=== PATIENT | male | born 1965 | race American Indian/Alaskan Native ===

== ENCOUNTER 2019-07-03 17:46 | Emergency (ER) | payer OTHER ==
[2019-07-03 18:29] VITALS: BP 121/67
--- NOTE | 2019-07-03 18:34 | Event Note ---
ED Screening Note Date of service: 07/03/19 Time: 18:28 ED Screening Note: This is a 53 y.o. M. that presents to the ER with right knee pain and swelling since yesterday. Patient states he was grilling when symptoms started. He went to [facility] yesterday and diagnosed with gout. Patient states he is taking colchicine and prednisone with no improvement of symptoms. Reports applying CBD oil as well with worsening symptoms. This initial assessment/diagnostic orders/clinical plan/treatment(s) is/are subject to change based on patients health status, clinical progression and re- assessment by fellow clinical providers in the ED. Further treatment and workup at subsequent clinical providers discretion. Patient/guardian urged not to elope from the ED as their condition may be serious if not clinically assessed and managed. Initial orders include: XR right knee
--- NOTE | 2019-07-03 19:14 | XRay Report ---
RIGHT KNEE 3 VIEWS INDICATION / CLINICAL INFORMATION: Right knee pain and swelling. COMPARISON: None available. FINDINGS: BONES / JOINT(S): There is a prosthesis involving the medial tibiofemoral joint space. There are mild degenerative changes involving the patellofemoral and lateral tibiofemoral joints. There is a modera te suprapatellar joint effusion. I see no evidence of fracture, dislocation or destructive lesion. SOFT TISSUES: There are a few calcific or ossific densities overlying the distal thigh medially which appeared to be in the soft tissues and outside the joint space. ADDITIONAL FINDINGS: None. IMPRESSION: Moderate joint effusion. Mild degenerative changes without acute osseous abnormality. Signer Name: Clayton Calles MD Signed: 07/03/2019 7:10 PM Workstation Name: [id number]
[2019-07-03] MEDS ORDERED: traMADol 50 MG TAB PO ONE (20:45)
--- NOTE | 2019-07-03 20:48 | Emergency Department Report ---
ED Extremity Problem HPI - General Chief complaint: Extremity Problem,Nontraumatic Stated complaint: RIGHT KNEE PAIN/SWELLING Time Seen by Provider: 07/03/19 18:27 Source: patient Mode of arrival: Wheelchair Limitations: No Limitations - History of Present Illness Initial comments: Patient is a 53-year-old male who presents emergency room with complaints of right knee pain and edema that began yesterday around 12 PM. He denies any fall or injury. He states he just began to experience the discomfort while he was standing outside grilling. The patient states that he [facility] was diagnosed with gout. he states he has never had gout before. He states he was given a Decadron injection and Toradol injection. He states he was placed on cholchicine and prednisone but his symptoms were not improving. He reports that he has had a partial knee replacement on this right knee. He denies any numbness or weakness. He is ambulatory with discomfort. He has a past medical history of hypertension. He denies any allergies medications. - Related Data Home Medications Medication Instructions Recorded Confirmed Last Taken Enalapril/Hydrochlorothiazide 1 each PO DAILY 12/02/15 03/18/16 03/17/16 12:00 [Vaseretic 10-25 mg] Celecoxib [celeBREX] 200 mg PO BID 03/18/16 03/18/16 03/17/16 20:00 Previous Rx's Medication Instructions Recorded Last Taken Type Ibuprofen [Motrin 600 MG tab] 600 mg PO Q8H PRN #14 tablet 07/03/19 Unknown Rx traMADoL [Ultram 50 MG tab] 50 mg PO Q6HR PRN #12 tablet 07/03/19 Unknown Rx Allergies Allergy/AdvReac Type Severity Reaction Status Date / Time No Known Allergies Allergy Verified 12/02/15 14:42 ED Review of Systems ROS: Stated complaint: RIGHT KNEE PAIN/SWELLING Other details as noted in HPI Comment: All other systems reviewed and negative ED Past Medical Hx - Past Medical History Previous Medical History?: Yes Hx Hypertension: Yes (X 10 YRS- TAKES MEDS IRREGULAR) Hx Congestive Heart Failure: No Hx Diabetes: No Hx GERD: Yes (NO MEDS) Hx Arthritis: Yes Hx Asthma: No Hx COPD: No Hx HIV: No - Social History Smoking Status: Never Smoker Substance Use Type: Alcohol - Medications Home Medications: Home Medications Medication Instructions Recorded Confirmed Last Taken Type Enalapril/Hydrochlorothiazide 1 each PO DAILY 12/02/15 03/18/16 03/17/16 12:00 History [Vaseretic 10-25 mg] Celecoxib [celeBREX] 200 mg PO BID 03/18/16 03/18/16 03/17/16 20:00 History Ibuprofen [Motrin 600 MG tab] 600 mg PO Q8H PRN #14 tablet 07/03/19 Unknown Rx traMADoL [Ultram 50 MG tab] 50 mg PO Q6HR PRN #12 tablet 07/03/19 Unknown Rx ED Physical Exam - General Limitations: No Limitations General appearance: alert, in no apparent distress - Head Head exam: Present: atraumatic, normocephalic - Eye Eye exam: Present: normal appearance - ENT ENT exam: Present: mucous membranes moist - Extremities Exam Extremities exam: Present: other (TTP over the right lateral knee, edema present to the right knee, pt is able to flex at 90 degrees, he has slightly decreased ROM secondary to discomfort, no obvious deformity, no obvious joint laxity, well healed midline knee incision is intact, neurovascularly intact, no erythema, no increased warmth) - Neurological Exam Neurological exam: Present: alert, oriented X3 - Psychiatric Psychiatric exam: Present: normal affect, normal mood - Skin Skin exam: Present: warm, dry, intact ED Course Vital Signs 07/03/19 07/03/19 18:26 21:03 Temperature 98.4 F Pulse Rate 100 H 104 H Respiratory 18 17 Rate Blood Pressure 121/67 O2 Sat by Pulse 100 99 Oximetry ED Medical Decision Making - Radiology Data Radiology results: report reviewed RIGHT KNEE 3 VIEWS INDICATION / CLINICAL INFORMATION: Right knee pain and swelling. COMPARISON: None available. FINDINGS: BONES / JOINT(S): There is a prosthesis involving the medial tibiofemoral joint space. There are mild degenerative changes involving the patellofemoral and lateral tibiofemoral joints. There is a moderate suprapatellar joint effusion. I see no evidence of fracture, dislocation or destructive lesion. SOFT TISSUES: There are a few calcific or ossific densities overlying the distal thigh medially which appeared to be in the soft tissues and outside the joint space. ADDITIONAL FINDINGS: None. IMPRESSION: Moderate joint effusion. Mild degenerative changes without acute osseous abnormality. Signer Name: Clayton Calles MD Signed: 07/03/2019 7:10 PM Workstation Name: [id number] Transcribed By: RT Dictated By: Clayton Calles MD Electronically Authenticated By: Clayton Calles MD Signed Date/Time: 07/03/191909 DD/ 07 - Medical Decision Making Patient is a 53-year-old male who presents emergency room with complaints of right knee pain and edema that began yesterday around 12 PM. He denies any fall or injury. He states he just began to experience the discomfort while he was standing outside grilling. The patient states that he went to the [facility] yesterday was diagnosed with gout. he states he has never had gout before. He states he was given a Decadron injection and Toradol injection. He states he was placed on cholchicine and prednisone but his symptoms were not improving. He reports that he has had a partial knee replacement on this right knee. He denies any numbness or weakness. He is ambulatory with discomfort. He has a past medical history of hypertension. He denies any allergies medications. vitals with mild tachycardia otherwise normal. on exam: TTP over the right lateral knee, edema present to the right knee, pt is able to flex at 90 degrees, he has slightly decreased ROM secondary to discomfort, no obvious deformity, no obvious joint laxity, well healed midline knee incision is intact, neurovascularly intact, no erythema, no increased warmth. No clinical signs of gout or septic joint. XR right knee: Moderate joint effusion. Mild degenerative changes without acute osseous abnormality. Discussed x-ray findings the patient. Patient states that he does have an orthopedic doctor that he can follow up with. Patient's discomfort treated while in the emergency department as patient did not drive and his symptoms improved. Patient given prescription for ibuprofen and tramadol. advised pt Please take medication as prescribed. Do not drive or operate heavy machinery while taking pain medication. May use ice for 15 minutes at a time, rest, elevation of the leg. Do not wear Isauro wrap too tightly and do not wear at night. Follow-up with your orthopedic doctor in the next 2-3 days for further management. Return to the emergency room for any new or worsening symptoms. - Differential Diagnosis gout, arthritis, joint effusion, septic joint, strain, sprain Critical care attestation.: If time is entered above; I have spent that time in minutes in the direct care of this critically ill patient, excluding procedure time. ED Disposition Clinical Impression: Effusion of right knee Right knee pain Qualifiers: Chronicity: acute Qualified Code(s): M25.561 - Pain in right knee Disposition: TO HOME OR SELFCARE Is pt being admited?: No Does the pt Need Aspirin: No Condition: Stable Instructions: Knee Effusion (ED), Knee Pain (ED) Additional Instructions: Please take medication as prescribed. Do not drive or operate heavy machinery while taking pain medication. May use ice for 15 minutes at a time, rest, elevation of the leg. Do not wear Isauro wrap too tightly and do not wear at night. Follow-up with your orthopedic doctor in the next 2-3 days for further management. Return to the emergency room for any new or worsening symptoms. Prescriptions: Ibuprofen [Motrin 600 MG tab] 600 mg PO Q8H PRN #14 tablet PRN Reason: Pain, Moderate (4-6) traMADoL [Ultram 50 MG tab] 50 mg PO Q6HR PRN #12 tablet PRN Reason: Pain , Severe (7-10) Referrals: TEE GREEN MD [Staff Physician] - 2-3 Days Time of Disposition: 20:49 Print Language: IVORIAN
== END 2019-07-03 21:05 | disposition home or self-care (01) ==
LOC: ED 17:46
DX: M25.461 Effusion, right knee (principal); I10 Essential (primary) hypertension; K21.9 Gastro-esophageal reflux disease without esophagitis; M19.90 Unspecified osteoarthritis, unspecified site; Z79.1 Long term (current) use of non-steroidal anti-inflammatories (NSAID); Z79.899 Other long term (current) drug therapy
CPT/HCPCS: 99283

== ENCOUNTER 2019-07-04 17:20 | Inpatient (IN) | payer OTHER ==
[2019-07-04] MEDS ORDERED: traMADol 50 MG TAB PO PRN (18:06)
[2019-07-04] MEDS ORDERED: ONDANSETRON 4 MG/2 ML INJ IV PRN (18:07)
[2019-07-04] MEDS ORDERED: ACETAMINOPHEN 325 MG TAB PO PRN (18:07)
--- NOTE | 2019-07-04 18:07 | History and Physical Report ---
History of Present Illness Date of examination: 07/04/19 Date of admission: 07/04/19 Chief complaint: Rt Knee pain 1 week History of present illness: Rt knee swelling and rt leg swelling 1 week.Rt Knee aspiration done by Dr Harris which was sent for analysis.Revealed [id number] white cells. patient being admitted directly for management of septic arthritis.And possible knee surgery. Past History Past Medical History: arthritis, diabetes, hypertension Past Surgical History: Other (03/19/16 l knee arthroscopy) Social history: lives with family, full code Family history: hypertension Medications and Allergies Allergies Allergy/AdvReac Type Severity Reaction Status Date / Time No Known Allergies Allergy Verified 12/02/15 14:42 Home Medications Medication Instructions Recorded Confirmed Last Taken Type Enalapril/Hydrochlorothiazide 1 each PO DAILY 12/02/15 07/04/19 07/03/19 History [Vaseretic 10-25 mg] Celecoxib [celeBREX] 200 mg PO BID 03/18/16 07/04/19 07/04/19 History Ibuprofen [Motrin 600 MG tab] 600 mg PO Q8H PRN #14 tablet 07/03/19 07/04/19 07/03/19 Rx traMADoL [Ultram 50 MG tab] 50 mg PO Q6HR PRN #12 tablet 07/03/19 07/04/19 07/03/19 Rx Active Meds: Active Medications Celecoxib (Celebrex) 200 mg PO BID [facility] Ampicillin Sodium/Sulbactam Sodium (Unasyn/Ns 3 Gm/100 Ml) 3 gm in 100 mls @ 100 mls/hr IV Q6HR [facility]; Protocol Miscellaneous Medication (Enalapril/Hydrochlorothiazide [Vaseretic 10-25 Mg]) 1 each PO DAILY [facility] Sodium Chloride (Sodium Chloride Flush Syringe 10 Ml) 10 ml IV BID [facility] Sodium Chloride (Sodium Chloride Flush Syringe 10 Ml) 10 ml IV PRN PRN PRN Reason: LINE FLUSH Tramadol HCl (Ultram) 50 mg PO Q6HR PRN PRN Reason: Pain , Severe (7-10) Review of Systems All systems: negative Integumentary: redness (Rt Knee) Exam - Constitutional General appearance: Present: no acute distress, well-nourished - EENT Eyes: Present: PERRL ENT: hearing intact, clear oral mucosa - Neck Neck: Present: supple, normal ROM - Respiratory Respiratory effort: normal Respiratory: bilateral: CTA - Cardiovascular Heart rate: 78 Rhythm: regular Heart Sounds: Present: S1 & S2. Absent: rub, click - Extremities Extremities: no ischemia, pulses intact, pulses symmetrical, No edema Extremity abnormal: edema, erythema (RT KNEE-TENDER,Decreased ROM) Peripheral Pulses: within normal limits - Abdominal General gastrointestinal: Present: soft, non-tender, non-distended, normal bowel sounds Male genitourinary: Present: normal - Integumentary Integumentary: Present: clear, warm, dry - Musculoskeletal Musculoskeletal: gait normal, strength equal bilaterally - Psychiatric Psychiatric: appropriate mood/affect, intact judgment & insight - Neurologic Neurologic: CNII-XII intact, moves all extremities - Allied Health Allied health notes reviewed: nursing, case management Results - Labs CBC & Chem 7: 07/06/19 05:57 07/06/19 05:57 - Imaging and Cardiology Chest x-ray: report reviewed (NAF) Imaging and Cardiology: RLE Duplex scan Negative for DVT Assessment and Plan Advance Directives: Yes (Full code) Plan of care discussed with patient/family: Yes - Patient Problems (1) Septic arthritis Current Visit: Yes Status: Acute Qualifiers: Septic arthritis location: knee Laterality: right Plan to address problem: IV abx in the form of Unasyn and IV vancomyin for now (2) SIRS (systemic inflammatory response syndrome) Current Visit: Yes Status: Acute Plan to address problem: IV abx (3) History of arthroplasty of right knee Onset Date: 12/05/15 Current Visit: No Status: Chronic Plan to address problem: For surgery Removal of previous hardware (4) Effusion of right knee Current Visit: No Status: Acute Plan to address problem: Rt knee fluid ,000 wbc,s IV Unasyn and vancomycin initiated (5) T2DM (type 2 diabetes mellitus) Current Visit: Yes Status: Chronic Qualifiers: Diabetes mellitus halfway insulin use: unspecified halfway insulin use status Plan to address problem: COnt achs BG levels and and insulin coverage. (6) HTN (hypertension) Current Visit: Yes Status: Chronic Qualifiers: Hypertension type: essential hypertension Qualified Code(s): I10 - Essential (primary) hypertension Plan to address problem: Cont antihypertensives (7) DVT prophylaxis Current Visit: Yes Status: Acute Plan to address problem: On SCD.s and GI prophlaxod
[2019-07-04] MEDS ORDERED: ENALAPRIL PO SCH (18:15)
[2019-07-04] MEDS ORDERED: HYDROCHLOROTHIAZIDE PO SCH (18:15)
[2019-07-04] MEDS ORDERED: VANCOMYCIN PHARMACY TO DOSE IV SCH (19:00)
[2019-07-04] MEDS ORDERED: SODIUM CHLORIDE 0.9% 1000 ML 1,000 ML IV SCH (19:00)
[2019-07-04] MEDS: FAMOTIDINE 20 MG/2 ML INJ IV SCH (21:19)
[2019-07-04] MEDS: HYDROmorphone 1 MG/1 ML INJ IV PRN (21:19)
[2019-07-04] MEDS: CELECOXIB 200 MG CAP PO SCH (21:21)
[2019-07-04] MEDS: hydroCHLOROthiazide 25 MG TAB PO SCH (21:22)
[2019-07-04] MEDS: LISINOPRIL 10 MG TAB PO SCH ×2 (21:22→21:25)
[2019-07-04 21:27] LABS: Basophils # (Auto) 0.1 K/mm3 (0.0-0.1); Basophils % (Auto) 0.8 % (0.0-1.8); Hematocrit 39.9 % (35.5-45.6); Hemoglobin 13.7 gm/dl (11.8-15.2); Lymphocytes # (Auto) 1.2 K/mm3 (1.2-5.4); Lymphocytes % (Auto) 9.7 % (13.4-35.0); Mean Corpuscular HGB Conc 35 % (32-34); Mean Corpuscular Volume 94 fl (84-94); Monocytes # (Auto) 1.5 K/mm3 (0.0-0.8); Monocytes % (Auto) 12.2 % (0.0-7.3); Platelet Count 151 K/mm3 (140-440); Red Blood Count 4.26 M/mm3 (3.65-5.03); Red Cell Distribution Width 14.6 % (13.2-15.2)
[2019-07-04 21:42] LABS: Alanine Aminotransferase 28 units/L (7-56); Albumin 3.6 g/dL (3.9-5); BUN/Creatinine Ratio 16; Blood Urea Nitrogen 16 mg/dL (9-20); Hemolysis Index 62
[2019-07-04 21:48] LABS: Erythrocyte Sedimentation Rate 56 mm/Hr (0-20)
[2019-07-04] MEDS: AMPICILLIN/SULBACTA 3GM/100ML 3 GM/100 ML BAG IV SCH (23:25)
[2019-07-04] MEDS ORDERED: VANCOMYCIN 2,000 MG in SODIUM CHLORIDE 0.9% 500 ML 500 ML IV ONE (23:45)
[2019-07-05 00:26] LABS: Bilirubin,Urine NEG (Negative); Blood,Urine LG (Negative); Color,Urine Yellow (Yellow); Protein,Urine <15 mg/dL mg/dL (Negative); Urobilinogen,Urine < 2.0 mg/dL (<2.0)
--- NOTE | 2019-07-05 00:57 | Vascular Lab Report ---
DUPLEX DOPPLER LOWER EXTREMITY VEINS, RIGHT INDICATION: R/O BLOOD CLOT , PT. PLANNED FOR SURGERY IN A.M.. TECHNIQUE: Duplex doppler imaging was performed through the veins of the right lower extremity using venous comp ression and other maneuvers. COMPARISON: No relevant prior imaging study available. FINDINGS: Right Common femoral vein: Negative. Right Superficial femoral vein: Negative. Right Popliteal vein: Negative. Right Calf veins: Negative. Additional findings: None.. IMPRESSION: Negative for DVT. Signer Name: Dennis Smith MD Signed: 07/05/2019 12:52 AM Workstation Name: [id number]
[2019-07-05] MEDS: HYDROmorphone 1 MG/1 ML INJ IV PRN ×3 (01:34→22:58)
[2019-07-05 04:14] LABS: Total Cells Counted 100 /mm3
[2019-07-05] MEDS: AMPICILLIN/SULBACTA 3GM/100ML 3 GM/100 ML BAG IV SCH ×4 (05:18→22:48)
[2019-07-05] MEDS: FAMOTIDINE 20 MG/2 ML INJ IV SCH ×2 (09:06→22:50)
[2019-07-05] MEDS: LISINOPRIL 10 MG TAB PO SCH (10:00)
[2019-07-05] MEDS: hydroCHLOROthiazide 25 MG TAB PO SCH (10:00)
--- NOTE | 2019-07-05 10:42 | Anesthesia Consultation ---
Anesthesia Consult and Med Hx Date of service: 07/05/19 - Airway Anesthetic Teeth Evaluation: Good, Caps ROM Head & Neck: Adequate Mental/Hyoid Distance: Adequate Mallampati Class: Class II Intubation Access Assessment: Probably Good - Pre-Operative Health Status ASA Pre-Surgery Classification: ASA3, Emergency Proposed Anesthetic Plan: General - Pulmonary Hx Smoking: No Hx Asthma: No COPD: No Hx Pneumonia: No Hx Sleep Apnea: Yes (SUKHWINDER PRE SCREEN HIGH RISK) - Cardiovascular System Hx Hypertension: Yes (X 10 YRS- TAKES MEDS IRREGULAR) Hx Angina: Yes (DRUG RELATED- RESOLVED) - Gastrointestinal Hx Ulcer: Yes - Endocrine Hx End Stage Renal Disease: No - Other Systems Hx Alcohol Use: Yes (2 BEERS PER DAY) Hx Substance Use: Yes (HX DRUG ABUSE) Hx Cancer: No - Additional Comments Anesthesia Medical History Comments: Had TKA done in 2016
--- NOTE | 2019-07-05 10:42 | Anesthesia Day of Surgery ---
Anesthesia Day of Surgery - Day of Surgery Patient Examined: Yes Patient H&P Reviewed: Yes Patient is NPO: Yes
[2019-07-05] MEDS ORDERED: HYDROmorphone 1 MG/1 ML INJ IV PRN (10:43)
[2019-07-05] MEDS ORDERED: MAGNESIUM OXIDE 400 MG TAB PO NR (10:44)
[2019-07-05] MEDS ORDERED: MORPHINE 2 MG/1 ML INJ IV NR (10:44)
[2019-07-05] MEDS ORDERED: ACETAMINOPHEN 500 MG TAB PO NR (10:44)
[2019-07-05] MEDS ORDERED: VANCOMYCIN 1000 MG INJ ONE ×2 (10:55→11:06)
[2019-07-05] MEDS ORDERED: POLYMYXIN B SULFATE 500,000 UNIT VIAL IV ONE ×2 (10:55→14:00)
[2019-07-05] MEDS ORDERED: BACITRACIN 50,000 UNIT VIAL ONE ×2 (10:55→10:56)
[2019-07-05] MEDS ORDERED: OXYCHLOROSENE 2 GM POWDER IR ONE ×2 (10:56→14:15)
[2019-07-05] MEDS ORDERED: LIDOCAINE MPF (2%) 20 MG/1 ML VIAL 5 ML ONE (10:58)
[2019-07-05] MEDS ORDERED: TRANEXAMIC ACID 1,000 MG/10 ML ONE (10:58)
[2019-07-05] MEDS ORDERED: fentaNYL 100 MCG/2 ML INJ ONE ×2 (10:59→15:40)
[2019-07-05] MEDS ORDERED: SODIUM CHLORIDE 0.9% 400 ML ONE (10:59)
[2019-07-05] MEDS ORDERED: PROPOFOL 200 MG/20 ML VIAL IV ONE (10:59)
[2019-07-05] MEDS ORDERED: MIDAZOLAM 2 MG/2 ML INJ IV NR (11:00)
[2019-07-05] MEDS ORDERED: GABAPENTIN 300 MG CAP PO NR (11:00)
[2019-07-05] MEDS: CELECOXIB 200 MG CAP PO SCH ×2 (11:00→22:49)
[2019-07-05] MEDS: VANCOMYCIN 1,750 MG in SODIUM CHLORIDE 0.9% 500 ML 500 ML IV SCH (11:00)
[2019-07-05] MEDS: LACTATED RINGERS 1,000 ML IV SCH (11:00)
[2019-07-05] MEDS ORDERED: TOBRAMYCIN 40 MG/ML VIAL 2 ML ONE (11:06)
--- NOTE | 2019-07-05 11:56 | Progress Note ---
Subjective Date of service: 07/05/19 Interval history: saw patient this morning at 9 am and again just now.. patient has acute onset severe right knee pain and swelling and inability to move and bend the cora. History of Right partial knee replacement. Aspiration yesterday by NIESHA shows gross pus 160 cc was aspirated and his knee swelled up again grade 3 this am. he has no history of any recent infection in the body as per the patient. PE- stiff painful swollen right knee, warmth present. movement increase pain tense effusion again in knee, recurrent NVI grossly xRAYS AT OFFICE SHOW PARTIAL UNI MEDIAL KNEE. AP- Disscussed with patient and informed him about his clinical and lab findings,, joint fluid gm positive cocci and gross pus on fluid aspiration, treatment options explained, nonop vs operative option explained. Surgical option explained I AND D and explant given his gross infection explained. cement spacer explained as well. Risk of surgery in terms of bleeding,, infection, nerve injury, vascular injury, stiffness in knee, persistant infection explained. he opts for sx. aware of all risk and benfit and alternative. Objective Vital signs: Vital Signs - 12hr 07/05/19 07/05/19 07/05/19 01:34 04:07 07:43 Temperature 98.0 F 98.3 F Pulse Rate 82 90 Respiratory 18 20 18 Rate Blood Pressure 116/77 125/70 O2 Sat by Pulse 96 98 Oximetry 07/05/19 11:00 Temperature Pulse Rate Respiratory 16 Rate Blood Pressure O2 Sat by Pulse Oximetry - Labs CBC & BMP: 07/04/19 21:04 07/04/19 21:04 Labs: Abnormal lab results 07/04/19 07/04/19 07/04/19 Range/Units 21:04 21:04 21:04 WBC 12.5 H (4.5-11.0) K/mm3 MCHC 35 H (32-34) % Lymph % (Auto) 9.7 L (13.4-35.0) % [place] % (Auto) 12.2 H (0.0-7.3) % [place] # 1.5 H (0.0-0.8) K/mm3 Seg Neutrophils % 77.3 H (40.0-70.0) % Seg Neutrophils # 9.7 H (1.8-7.7) K/mm3 Sodium 135 L (137-145) mmol/L Chloride 96.5 L (98-107) mmol/L Glucose 143 H (75-100) mg/dL POC Glucose (70-105) C-Reactive Protein 22.70 H (0.00-1.30) mg/dL Albumin 3.6 L (3.9-5) g/dL 07/05/19 Range/Units 11:00 WBC (4.5-11.0) K/mm3 MCHC (32-34) % Lymph % (Auto) (13.4-35.0) % [place] % (Auto) (0.0-7.3) % [place] # (0.0-0.8) K/mm3 Seg Neutrophils % (40.0-70.0) % Seg Neutrophils # (1.8-7.7) K/mm3 Sodium (137-145) mmol/L Chloride (98-107) mmol/L Glucose (75-100) mg/dL POC Glucose 126 H (70-105) C-Reactive Protein (0.00-1.30) mg/dL Albumin (3.9-5) g/dL
--- NOTE | 2019-07-05 12:02 | Progress Note ---
Subjective Date of service: 07/05/19 Interval history: patient may have potential ear infection in past.. informed patient about leaving the implant in vs removing and putting cement spacer.. risk and benefits of both option discussed and explained. He elects to remove the metal as it can be a constant source of infection since he is gross pus in the knee.. If I/o pus is seen under the metal and gap between the metal and bone with infection tissue, explant will be performed Objective Vital signs: Vital Signs - 12hr 07/05/19 07/05/19 07/05/19 01:34 04:07 07:43 Temperature 98.0 F 98.3 F Pulse Rate 82 90 Respiratory 18 20 18 Rate Blood Pressure 116/77 125/70 O2 Sat by Pulse 96 98 Oximetry 07/05/19 11:00 Temperature Pulse Rate Respiratory 16 Rate Blood Pressure O2 Sat by Pulse Oximetry - Labs CBC & BMP: 07/04/19 21:04 07/04/19 21:04 Labs: Abnormal lab results 07/04/19 07/04/19 07/04/19 Range/Units 21:04 21:04 21:04 WBC 12.5 H (4.5-11.0) K/mm3 MCHC 35 H (32-34) % Lymph % (Auto) 9.7 L (13.4-35.0) % [place] % (Auto) 12.2 H (0.0-7.3) % [place] # 1.5 H (0.0-0.8) K/mm3 Seg Neutrophils % 77.3 H (40.0-70.0) % Seg Neutrophils # 9.7 H (1.8-7.7) K/mm3 Sodium 135 L (137-145) mmol/L Chloride 96.5 L (98-107) mmol/L Glucose 143 H (75-100) mg/dL POC Glucose (70-105) C-Reactive Protein 22.70 H (0.00-1.30) mg/dL Albumin 3.6 L (3.9-5) g/dL 07/05/19 Range/Units 11:00 WBC (4.5-11.0) K/mm3 MCHC (32-34) % Lymph % (Auto) (13.4-35.0) % [place] % (Auto) (0.0-7.3) % [place] # (0.0-0.8) K/mm3 Seg Neutrophils % (40.0-70.0) % Seg Neutrophils # (1.8-7.7) K/mm3 Sodium (137-145) mmol/L Chloride (98-107) mmol/L Glucose (75-100) mg/dL POC Glucose 126 H (70-105) C-Reactive Protein (0.00-1.30) mg/dL Albumin (3.9-5) g/dL
[2019-07-05] MEDS ORDERED: HYDROmorphone 1 MG/1 ML INJ ONE (12:18)
[2019-07-05] MEDS ORDERED: TRANEXAMIC ACID 1,000 MG/10 ML IV ONE (12:35)
[2019-07-05] MEDS ORDERED: BACITRACIN 50,000 UNIT VIAL IR ONE (14:00)
[2019-07-05] MEDS ORDERED: VANCOMYCIN 1,000 MG/20 ML IV ONE (14:22)
[2019-07-05] MEDS ORDERED: LACTATED RINGERS 1,000 ML ONE (14:54)
[2019-07-05] MEDS ORDERED: dexAMETHasone 20 MG/5 ML VIAL ONE (14:57)
[2019-07-05] MEDS ORDERED: ONDANSETRON 4 MG/2 ML INJ ONE (14:57)
--- NOTE | 2019-07-05 15:18 | Progress Note ---
Assessment and Plan - Patient Problems (1) Septic arthritis Current Visit: Yes Status: Acute Qualifiers: Septic arthritis location: knee Laterality: right Plan to address problem: IV abx in the form of Unasyn and IV vancomyin for now (2) Effusion of right knee Current Visit: No Status: Acute Plan to address problem: Rt knee fluid [id number] wbc,s IV Unasyn and vancomycin initiated (3) T2DM (type 2 diabetes mellitus) Current Visit: Yes Status: Chronic Qualifiers: Diabetes mellitus exterminator helper insulin use: unspecified senior care insulin use status Plan to address problem: COnt achs BG levels and and insulin coverage. (4) HTN (hypertension) Current Visit: Yes Status: Chronic Qualifiers: Hypertension type: essential hypertension Qualified Code(s): I10 - Essential (primary) hypertension Plan to address problem: Cont antihypertensives (5) DVT prophylaxis Current Visit: Yes Status: Acute Plan to address problem: On SCD.s and GI prophlaxod Subjective Date of service: 07/05/19 Principal diagnosis: Rt Knee pain Interval history: Rt knee swelling and rt leg swelling 1 week.Rt Knee aspiration done by Dr Harris which was sent for analysis.Revealed [id number] white cells. patient being admitted directly for management of septic arthritis.And possible knee surgery. Objective - Constitutional Vitals: Vital Signs - 12hr 07/05/19 07/05/19 07/05/19 04:07 07:43 10:40 Temperature 98.0 F 98.3 F 99.7 F H Pulse Rate 82 90 97 H Respiratory 20 18 18 Rate Blood Pressure 116/77 125/70 144/86 O2 Sat by Pulse 96 98 99 Oximetry 07/05/19 07/05/19 07/05/19 10:50 11:00 11:45 Temperature 99.7 F H Pulse Rate 97 H Respiratory 18 16 16 Rate Blood Pressure 144/86 O2 Sat by Pulse 99 Oximetry General appearance: Present: no acute distress, well-nourished - EENT Eyes: PERRL, EOM intact ENT: hearing intact, clear oral mucosa Ears: bilateral: normal - Neck Neck: supple, normal ROM - Respiratory Respiratory effort: normal Respiratory: bilateral: CTA - Breasts Breasts: normal - Cardiovascular Heart rate: 78 Rhythm: regular Heart Sounds: Present: S1 & S2. Absent: gallop, rub Extremities: pulses intact, No edema, normal color, Full ROM Extremity abnormal: erythema, tenderness, other (Rt knee tender) - Gastrointestinal General gastrointestinal: Present: soft, non-tender, non-distended, normal bowel sounds Rectal Exam: deferred - Genitourinary Male genitourinary: normal - Integumentary Integumentary: clear, warm, dry - Musculoskeletal Musculoskeletal: 1, strength equal bilaterally - Neurologic Neurologic: moves all extremities - Psychiatric Psychiatric: memory intact, appropriate mood/affect, intact judgment & insight - Allied health notes Allied health notes reviewed: nursing, case management - Labs CBC & Chem 7: 07/04/19 21:04 07/04/19 21:04 Labs: Abnormal lab results 07/04/19 07/04/19 07/04/19 Range/Units 21:04 21:04 21:04 WBC 12.5 H (4.5-11.0) K/mm3 MCHC 35 H (32-34) % Lymph % (Auto) 9.7 L (13.4-35.0) % [place] % (Auto) 12.2 H (0.0-7.3) % [place] # 1.5 H (0.0-0.8) K/mm3 Seg Neutrophils % 77.3 H (40.0-70.0) % Seg Neutrophils # 9.7 H (1.8-7.7) K/mm3 Sodium 135 L (137-145) mmol/L Chloride 96.5 L (98-107) mmol/L Glucose 143 H (75-100) mg/dL POC Glucose (70-105) C-Reactive Protein 22.70 H (0.00-1.30) mg/dL Albumin 3.6 L (3.9-5) g/dL 07/05/19 Range/Units 11:00 WBC (4.5-11.0) K/mm3 MCHC (32-34) % Lymph % (Auto) (13.4-35.0) % [place] % (Auto) (0.0-7.3) % [place] # (0.0-0.8) K/mm3 Seg Neutrophils % (40.0-70.0) % Seg Neutrophils # (1.8-7.7) K/mm3 Sodium (137-145) mmol/L Chloride (98-107) mmol/L Glucose (75-100) mg/dL POC Glucose 126 H (70-105) C-Reactive Protein (0.00-1.30) mg/dL Albumin (3.9-5) g/dL
--- NOTE | 2019-07-05 16:04 | Event Note ---
Date: 07/05/19 Received consultation. Patient is in the OR currently. Will see him tomorrow. Thanks
--- NOTE | 2019-07-05 16:48 | XRay Report ---
RIGHT KNEE 2 VIEWS INDICATION / CLINICAL INFORMATION: Postop. COMPARISON: 07/03/2019. FINDINGS: The prosthesis in the medial tibiofemoral joint space has been removed. There is new cement overlying the medial tibial plateau and adjacent joint space. There is postsurgical gas in the soft tissues. M etallic derek overlying the surgical site. There is no evidence of fracture or dislocation. No complication of surgery is seen. Signer Name: Clayton Calles MD Signed: 07/05/2019 4:43 PM Workstation Name: [id number]
[2019-07-05] MEDS: oxyCODONE /ACETAMINOPHEN 5-325MG TAB PO PRN (17:33)
[2019-07-05 17:38] LABS: Total Cells Counted 100 /mm3
--- NOTE | 2019-07-05 18:45 | Operative Report ---
PREOPERATIVE DIAGNOSES: Septic right knee joint with partial medial unicompartmental arthroplasty, medial unicompartmental knee with infected right knee joint. POSTOPERATIVE DIAGNOSES: Grossly infected right knee joint with contaminated hardware with synovitis, synovial proliferation, acute inflammation of the right knee joint synovial tissue. Surgeon- Dr schmid , co-surgeon- Dr. Leigh PROCEDURES PERFORMED: 1. Revision right knee surgery. 2. Removal of the partial knee components and insertion of antibiotic cement spacer. 3. Complete synovectomy of the right knee joint, irrigation and debridement and synovectomy of right knee joint. Tissue cultures, biopsy of the right knee tissue joint. BRIEF HISTORY: The patient had partial knee replacement by Dr. Leigh in the past 3 years ago. Three days ago, he started having increased pain, discomfort and swelling in the knee and aspiration revealed gross pus about [address] andrew SCHERER. he experiences incraese pain, stiff and swollen knee with increased warmth and aspiration revealed gross pus and Gram stain grew gram-positive cocci. Elevated ESR, CRP. The patient was given all the options. The patient elected for surgical intervention with irrigation and debridement with removal of prosthesis with cement spacer insertion.. Discussed this along with Dr. Leigh, discussed this with the patient. The patient elected for irrigation, debridement and explant of cement spacer. DETAILS OF THE OPERATIVE REPORT: The patient was taken to the operating room. After smooth general endotracheal anesthesia, all the bony prominences were carefully padded, placed supine on the operating table. Thigh tourniquet was placed. Right knee and right lower extremity was prepped and draped in sterile fashion. Leg elevated, tourniquet inflated to 300 mmHg. No Esmarch was used. A longitudinal incision made over anterior aspect of the knee exposing extensive mechanism. Arthrotomy performed. Patella was just shifted. Gross significant amount of pus was encountered and that was sent for cell count with diff, aerobic and anaerobic culture, AFB, fungal culture by the staff. Noticed, there was significant acute inflammation, synovitis and proliferation of the knee joint. Necessary subperiosteal dissection was continued around the proximal and medial tibia. Necessary soft tissue release was performed to correct the fixed angular deformity. Necessary soft tissue release was performed to basically put the Z retractor in place. The polyethylene liner was removed. Gross amount of pus was again delivered on the back of the knee and there was some infected tissue material seen underneath the implant as well. We decided to remove the implant given the significant amount of pus and grossly infected knee and the synovium was all infected looking as well with acute inflammation. Using a micro saw, flexible osteotome and a pencil tip bur, the implants of uni knee on medial side, the uni was removed without any bone loss. The remnant of the cement was removed as well. Complete synovectomy was then performed thoroughly. Once necessary tissue culture, synovial tissue cultures, culture swabs were done, tissue cultures were done, irrigation with 6 liters of saline was done with antibiotic-soaked normal saline followed by a Clorpactin irrigation at least a liter, then followed by normal saline irrigation a liter. Once thorough washing was performed, this was all done after synovectomy and washed, washing was performed, dirty clean technique was used. We used new drapes on the bottom underneath. New Bovie tip and new suction tip was used. gloves were changed. new Retractors and new set of instruments were used. Once this was done, we decided to use antibiotic spacer for the medial side. We mixed 2 bags of cement, mixed about 5 gram of vancomycin and 4 gram of tobramycin, a bag and a half of cement and prepared on the back table and made a spacer mold on the medial uni and inserted and put in the late doughy phase. Once this was done, tourniquet released. Hemostasis achieved. No active bleeder as such.ethibond sutures were removed. Arthrotomy closure was then performed with a #2 PDS type of suture. Subcutaneous tissue was closed with 0 and 2-0 PDS suture and skin was closed with derek. A dressing was done with Aquacel. Isauro wrap applied. Knee immobilizer applied. The patient tolerated procedure well, shifted to recovery room in stable condition. Sponge and needle count was correct. JOB# [id number] NICOLE/OSWALDO HERNANDEZ
[2019-07-05] MEDS: APIXABAN 2.5 MG TAB PO SCH (22:58)
[2019-07-06] MEDS: VANCOMYCIN 1,750 MG in SODIUM CHLORIDE 0.9% 500 ML 500 ML IV SCH ×2 (00:11→15:59)
[2019-07-06] MEDS: LACTATED RINGERS 1,000 ML IV SCH ×2 (01:12→16:02)
[2019-07-06] MEDS: AMPICILLIN/SULBACTA 3GM/100ML 3 GM/100 ML BAG IV SCH ×2 (03:05→09:17)
[2019-07-06] MEDS: HYDROmorphone 1 MG/1 ML INJ IV PRN ×4 (03:45→19:56)
[2019-07-06] MEDS: oxyCODONE /ACETAMINOPHEN 5-325MG TAB PO PRN ×2 (05:35→22:09)
[2019-07-06 06:23] LABS: Basophils # (Auto) 0.1 K/mm3 (0.0-0.1); Basophils % (Auto) 0.5 % (0.0-1.8); Hematocrit 35.9 % (35.5-45.6); Hemoglobin 12.1 gm/dl (11.8-15.2); Lymphocytes # (Auto) 0.5 K/mm3 (1.2-5.4); Mean Corpuscular HGB Conc 34 % (32-34); Mean Corpuscular Volume 95 fl (84-94); Monocytes % (Auto) 8.5 % (0.0-7.3); Platelet Count 173 K/mm3 (140-440); Red Blood Count 3.79 M/mm3 (3.65-5.03); Red Cell Distribution Width 14.5 % (13.2-15.2)
[2019-07-06 06:53] LABS: Alanine Aminotransferase 27 units/L (7-56); Albumin 3.3 g/dL (3.9-5); BUN/Creatinine Ratio 14; Blood Urea Nitrogen 13 mg/dL (9-20); Calcium 8.5 mg/dL (8.4-10.2); Hemolysis Index 0
[2019-07-06] MEDS: FAMOTIDINE 20 MG/2 ML INJ IV SCH ×2 (09:18→22:09)
[2019-07-06] MEDS: CELECOXIB 200 MG CAP PO SCH ×2 (09:18→22:08)
[2019-07-06] MEDS: hydroCHLOROthiazide 25 MG TAB PO SCH (09:18)
[2019-07-06] MEDS: APIXABAN 2.5 MG TAB PO SCH ×2 (09:18→22:23)
[2019-07-06] MEDS: LISINOPRIL 10 MG TAB PO SCH (09:19)
--- NOTE | 2019-07-06 10:21 | Consultation ---
History of Present Illness - Reason for Consult Consult date: 07/06/19 Infected knee joint Requesting physician: KATTY DAMIAN - History of Present Illness The patient is a 53-year-old male with arthritis, pre-diabetes, hypertension. He underwent a partial R knee replacement about 3 years ago. Over the last 1 week, he developed progressive pain, swelling in his knee joint. He underwent R knee aspiration by Dr. Harris which revealed 200,000 white cells. Hence, he was admitted for management of septic arthritis. On 07/05/2019, he underwent revision with removal of the partial knee components, insertion of antibiotic cement and complete synovectomy of the R knee joint with I&D. ID was consulted for antibiotic management. About a week ago, he reports having ear pain and he put in some ?peroxide ear drops. He denies any fevers or chills. As any recent history of pneumonia. Denies smoking. Drinks 1-2 cans of beer every day. Review of Systems: General: no fevers,chills or rigors HEENT: no new visual disturbance Respiratory: No cough, sputum, hemoptysis or shortness of breath Cardiovascular: No chest pain, syncope Gastrointestinal: No nausea, vomiting or diarrhea Genitourinary: No dysuria or hematuria Musculoskeletal: No new or worsening neck pain or back pain Neurologic: No headaches, seizures Hematologic: No easy bruising or bleeding Endocrine: No night sweats or acute weight loss Skin: negative for rash, jaundice Psychiatric: No suicidal or homicidal ideation Past History Past Medical History: arthritis, diabetes, hypertension Past Surgical History: Other (03/19/16 l knee arthroscopy) Social history: lives with family, full code Family history: hypertension Medications and Allergies Allergies Allergy/AdvReac Type Severity Reaction Status Date / Time No Known Allergies Allergy Verified 12/02/15 14:42 Home Medications Medication Instructions Recorded Confirmed Last Taken Type Enalapril/Hydrochlorothiazide 1 each PO DAILY 12/02/15 07/04/19 07/03/19 History [Vaseretic 10-25 mg] Celecoxib [celeBREX] 200 mg PO BID 03/18/16 07/04/19 07/04/19 History Ibuprofen [Motrin 600 MG tab] 600 mg PO Q8H PRN #14 tablet 07/03/19 07/04/19 07/03/19 Rx traMADoL [Ultram 50 MG tab] 50 mg PO Q6HR PRN #12 tablet 07/03/19 07/04/19 07/03/19 Rx Active Meds: Active Medications Acetaminophen (Tylenol) 650 mg PO Q4H PRN PRN Reason: Pain MILD(1-3)/Fever >100.5/DIAZ Apixaban (Eliquis) 2.5 mg PO Q12HR [facility]; Protocol Last Admin: 07/06/19 09:18 Dose: 2.5 mg Documented by: Celecoxib (Celebrex) 200 mg PO BID [facility] Last Admin: 07/06/19 09:18 Dose: 200 mg Documented by: Famotidine (Pepcid) 20 mg IV BID [facility] Last Admin: 07/06/19 09:18 Dose: 20 mg Documented by: Hydrochlorothiazide (Hctz) 25 mg PO QDAY [facility] Last Admin: 07/06/19 09:18 Dose: 25 mg Documented by: Hydromorphone HCl (Dilaudid) 1 mg IV Q3H PRN PRN Reason: Pain , Severe (7-10) Last Admin: 07/06/19 03:45 Dose: 1 mg Documented by: Ampicillin Sodium/Sulbactam Sodium (Unasyn/Ns 3 Gm/100 Ml) 3 gm in 100 mls @ 100 mls/hr IV Q6H [facility]; Protocol Last Admin: 07/06/19 09:17 Dose: 100 mls/hr Documented by: Sodium Chloride (Nacl 0.9% 1000 Ml) 1,000 mls @ 75 mls/hr IV DIRECT [facility] Last Admin: 07/04/19 21:21 Dose: 75 mls/hr Documented by: Vancomycin HCl 1,750 mg/ (Sodium Chloride) 535 mls @ 333.333 mls/hr IV Q12H [facility] Last Admin: 07/06/19 00:11 Dose: 333.333 mls/hr Documented by: Lactated Ringer's (Lactated Ringers) 1,000 mls @ 125 mls/hr IV DIRECT [facility] Last Admin: 07/06/19 01:12 Dose: 125 mls/hr Documented by: Lisinopril (Zestril) 10 mg PO QDAY [facility] Last Admin: 07/06/19 09:19 Dose: Not Given Documented by: Ondansetron HCl (Zofran) 4 mg IV Q8H PRN PRN Reason: Nausea And Vomiting Oxycodone/Acetaminophen (Percocet 5/325) 1 tab PO Q6H PRN PRN Reason: Pain, Moderate (4-6) Last Admin: 07/06/19 05:35 Dose: 1 tab Documented by: Sodium Chloride (Sodium Chloride Flush Syringe 10 Ml) 10 ml IV BID [facility] Last Admin: 07/06/19 09:20 Dose: 10 ml Documented by: Sodium Chloride (Sodium Chloride Flush Syringe 10 Ml) 10 ml IV BID [facility] Last Admin: 07/06/19 00:18 Dose: Not Given Documented by: Tramadol HCl (Ultram) 50 mg PO Q6HR PRN PRN Reason: Pain, Moderate (4-6) Physical Examination - Physical Exam Narrative exam: Physical Exam: Constitutional: Alert, cooperative. No acute distress Head, Ears, Nose: Normocephalic, atraumatic. External ears, nose normal Eyes: Conjunctivae/corneas clear. No icterus. No ptosis. Neck: Supple, no meningeal signs Oral: dentition fair, no thrush Cardiovascular: S1, S2 normal. Respiratory: b/l exp rhonchi + GI: Soft, non-tender; bowel sounds normal. No peritoneal signs Musculoskeletal: No pedal edema, no cyanosis. R knee surgical dressing + mild warmth and tenderness Skin: No rash or abscess Hem/Lymphatic: No palpable cervical or supraclavicular nodes. No lymphangitis Psych: Mood ok. Affect normal Neurological: Awake, alert, oriented. No gross abnormality - Constitutional Vitals: Vital Signs Temp Pulse Resp BP Pulse Ox 97.8 F 78 19 121/72 96 07/06/19 09:32 07/06/19 09:32 07/06/19 09:32 07/06/19 09:32 07/06/19 09:32 Temperature -Last 24 Hours Temperature 97.8 F Temperature 97.8 F Temperature 97.6 F Temperature 97.4 F Temperature 97.3 F Temperature 97.5 F Temperature 98.0 F Temperature 97.7 F Temperature 99.7 F Temperature 99.7 F Results - Labs CBC & Chem 7: 07/06/19 05:57 07/06/19 05:57 Labs: Abnormal lab results 07/05/19 07/06/19 07/06/19 Range/Units 11:00 05:57 05:57 WBC 11.9 H (4.5-11.0) K/mm3 MCV 95 H (84-94) fl Lymph % (Auto) 4.0 L (13.4-35.0) % [place] % (Auto) 8.5 H (0.0-7.3) % Lymph # 0.5 L (1.2-5.4) K/mm3 [place] # 1.0 H (0.0-0.8) K/mm3 Seg Neutrophils % 87.0 H (40.0-70.0) % Seg Neutrophils # 10.4 H (1.8-7.7) K/mm3 Glucose 195 H (75-100) mg/dL POC Glucose 126 H (70-105) Albumin 3.3 L (3.9-5) g/dL Imaging reviewed personally: Xray of knee shows removal of prosthesis. 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 Patient with gross purulence and hence is s/p revision with removal of the partial knee components, insertion of antibiotic cement and complete synovectomy of the R knee joint with I&D on 07/05/[address] Damian. Plan for 6 weeks of directed IV abx. Get baseline inflammatory ma rkers ESR and CRP. Also check CXR and TTE. 2) DM-2/pre-diabetes 3) HTN Recs: - IV Ceftriaxone 2 gm daily started - continue IV Vancomycin for now, till resistant Strep pneumoniae is ruled out - PICC line tomorrow (if blood cultures remain negative at 48 hrs) - Unasyn d/wayne - CXR and TTE, ESR, CRP ordered Will follow. Kristi Powell MD, FACP [facility] ([facility] C: [phone] O: [phone] F: [phone]
--- NOTE | 2019-07-06 11:15 | Progress Note ---
Subjective Date of service: 07/06/19 Principal diagnosis: Rt Knee pain Interval history: pod1, doing well. patient had some tingling in the sole which got better fully with removal of xin PE dressing dry No knee effusion today Calf soft NT NVI ankle movts present 5/5 ankle and EFL. DF 5/5 PF- 5/5/ Sensations in LE and foot WNL. Normal pressure and priprioception sensation. Dressing is dry No active drainage patient infored of the course of treatment, possibility of persistant infection in knee explained which may need multiple scxx. Steg 2 revision after treating infection explained. Risk of knee fusion, and Rare possibility of amputation discussed,. Family and patient aware.. Objective Vital signs: Vital Signs - 12hr 07/05/19 07/06/19 07/06/19 23:58 04:31 07:28 Temperature 97.3 F L 97.4 F L 97.6 F Pulse Rate 79 72 74 Respiratory 17 17 18 Rate Blood Pressure 121/73 127/70 121/56 Blood Pressure [Left] O2 Sat by Pulse 96 97 96 Oximetry 07/06/19 07/06/19 09:16 09:32 Temperature 97.8 F 97.8 F Pulse Rate 75 78 Respiratory 19 19 Rate Blood Pressure 121/72 Blood Pressure 121/72 [Left] O2 Sat by Pulse 97 96 Oximetry - Labs CBC & BMP: 07/06/19 05:57 07/06/19 05:57 Labs: Abnormal lab results 07/06/19 07/06/19 Range/Units 05:57 05:57 WBC 11.9 H (4.5-11.0) K/mm3 MCV 95 H (84-94) fl Lymph % (Auto) 4.0 L (13.4-35.0) % [place] % (Auto) 8.5 H (0.0-7.3) % Lymph # 0.5 L (1.2-5.4) K/mm3 [place] # 1.0 H (0.0-0.8) K/mm3 Seg Neutrophils % 87.0 H (40.0-70.0) % Seg Neutrophils # 10.4 H (1.8-7.7) K/mm3 Glucose 195 H (75-100) mg/dL Albumin 3.3 L (3.9-5) g/dL
--- NOTE | 2019-07-06 13:05 | Progress Note ---
Subjective Date of service: 07/06/19 Principal diagnosis: Rt Knee pain Interval history: ortho DC instructions once clear by medicine, PT an ID. TTWB right LE Knee immobilizer at all times, Isometric quads Ankle pumps Eliquis 2.5 mg BID for 12 days then ECASA 325 MG bid FOR 4 WEEKS. Ice pacs on knee. Pain meds PRN fOllow Medicine and ID instructions. Follow up2 WEEKS. Objective Vital signs: Vital Signs - 12hr 07/06/19 07/06/19 07/06/19 04:31 07:28 09:16 Temperature 97.4 F L 97.6 F 97.8 F Pulse Rate 72 74 75 Respiratory 17 18 19 Rate Blood Pressure 127/70 121/56 121/72 Blood Pressure [Left] O2 Sat by Pulse 97 96 97 Oximetry 07/06/19 09:32 Temperature 97.8 F Pulse Rate 78 Respiratory 19 Rate Blood Pressure Blood Pressure 121/72 [Left] O2 Sat by Pulse 96 Oximetry - Labs CBC & BMP: 07/06/19 05:57 07/06/19 05:57 Labs: Abnormal lab results 07/06/19 07/06/19 Range/Units 05:57 05:57 WBC 11.9 H (4.5-11.0) K/mm3 MCV 95 H (84-94) fl Lymph % (Auto) 4.0 L (13.4-35.0) % [place] % (Auto) 8.5 H (0.0-7.3) % Lymph # 0.5 L (1.2-5.4) K/mm3 [place] # 1.0 H (0.0-0.8) K/mm3 Seg Neutrophils % 87.0 H (40.0-70.0) % Seg Neutrophils # 10.4 H (1.8-7.7) K/mm3 Glucose 195 H (75-100) mg/dL Albumin 3.3 L (3.9-5) g/dL
--- NOTE | 2019-07-06 14:49 | XRay Report ---
CHEST 2 VIEWS INDICATION / CLINICAL INFORMATION: Strep pneumoniae infection, rule out pneumonia. COMPARISON: None available. FINDINGS: SUPPORT DEVICES: None. HEART / MEDIASTINUM: No significant abnormality. LUNGS / PLEURA: No significant pulmonary or pleural abnormality. No pneumothorax. ADDITIONAL FINDINGS: No significant additional findings. IMPRESSION: 1. No acute findings. Signer Name: Royer Thomas MD Signed: 07/06/2019 2:45 PM Workstation Name: [id number]
[2019-07-06] MEDS: cefTRIAXone/NS 2 GM/100 ML 2 GM/100 ML BAG IV SCH (15:01)
[2019-07-07] MEDS: VANCOMYCIN 1,750 MG in SODIUM CHLORIDE 0.9% 500 ML 500 ML IV SCH (01:36)
[2019-07-07] MEDS: HYDROmorphone 1 MG/1 ML INJ IV PRN ×4 (01:37→14:13)
[2019-07-07] MEDS: LACTATED RINGERS 1,000 ML IV SCH ×2 (06:11→16:33)
--- NOTE | 2019-07-07 07:58 | Progress Note ---
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 Patient with gross purulence and hence is s/p revision with removal of the partial knee components, insertion of antibiotic cement and complete synovectomy of the R knee joint with I&D on 07/05/[address] Francis. Plan for 6 weeks of directed IV abx. Get baseline inflammatory markers ESR and CRP. Also check CXR and TTE. - IV Ceftriaxone 2 gm daily started - continue IV Vancomycin for now, till resistant Strep pneumoniae is ruled out - PICC line tomorrow (if blood cultures remain negative at 48 hrs) - Unasyn d/wayne - CXR and TTE, ESR, CRP ordered (2) SIRS (systemic inflammatory response syndrome) Current Visit: Yes Status: Acute Plan to address problem: R knee PJI: late, likely from hematogenous seeding, especially given growth of Strep pneumoniae. Patient with gross purulence and hence is s/p revision with removal of the partial knee components, insertion of antibiotic cement and complete synovectomy of the R knee joint with I&D on 07/05/[address] Fabiano muñoz Plan for 6 weeks of directed IV abx. Get baseline inflammatory markers ESR and CRP. Also check CXR and TTE. - IV Ceftriaxone 2 gm daily started - continue IV Vancomycin for now, till resistant Strep pneumoniae is ruled out - PICC line tomorrow (if blood cultures remain negative at 48 hrs) - Unasyn d/wayne - CXR and TTE, ESR, CRP ordered (3) History of arthroplasty of right knee Onset Date: 12/05/15 Current Visit: No Status: Chronic Plan to address problem: For surgery Removal of previous hardware (4) Effusion of right knee Current Visit: No Status: Acute Plan to address problem: Rt knee fluid [id number] wbc,s IV Unasyn and vancomycin initiated (5) T2DM (type 2 diabetes mellitus) Current Visit: Yes Status: Chronic Qualifiers: Diabetes mellitus assisted insulin use: unspecified assisted insulin use status Plan to address problem: COnt achs BG levels and and insulin coverage. (6) HTN (hypertension) Current Visit: Yes Status: Chronic Qualifiers: Hypertension type: essential hypertension Qualified Code(s): I10 - Essential (primary) hypertension Plan to address problem: Cont antihypertensives (7) DVT prophylaxis Current Visit: Yes Status: Acute Plan to address problem: On SCD.s and GI prophlaxod Subjective Date of service: 07/06/19 Principal diagnosis: Rt Knee pain Interval history: Rt knee swelling and rt leg swelling 1 week.Rt Knee aspiration done by Dr Harris which was sent for analysis.Revealed [id number] white cells. patient being admitted directly for management of septic arthritis.And s/p knee surgery. Objective - Constitutional Vitals: Vital Signs - 12hr 07/07/19 07/07/19 00:17 04:24 Temperature 98.0 F 97.8 F Pulse Rate 70 58 L Respiratory 20 20 Rate Blood Pressure 141/71 117/64 O2 Sat by Pulse 95 95 Oximetry General appearance: Present: no acute distress, well-nourished - EENT Eyes: PERRL, EOM intact ENT: hearing intact, clear oral mucosa Ears: bilateral: normal - Neck Neck: supple, normal ROM - Respiratory Respiratory effort: normal Respiratory: bilateral: CTA - Breasts Breasts: normal - Cardiovascular Rhythm: regular Heart Sounds: Present: S1 & S2. Absent: gallop, rub Extremities: pulses intact, No edema, normal color, Full ROM - Gastrointestinal General gastrointestinal: Present: soft, non-tender, non-distended, normal bowel sounds - Genitourinary Male genitourinary: normal - Integumentary Integumentary: clear, warm, dry - Musculoskeletal Musculoskeletal: 1, strength equal bilaterally - Neurologic Neurologic: moves all extremities - Psychiatric Psychiatric: memory intact, appropriate mood/affect, intact judgment & insight - Labs CBC & Chem 7: 07/06/19 05:57 07/06/19 05:57
[2019-07-07] MEDS: CELECOXIB 200 MG CAP PO SCH ×2 (09:41→21:30)
[2019-07-07] MEDS: hydroCHLOROthiazide 25 MG TAB PO SCH (09:41)
[2019-07-07] MEDS: APIXABAN 2.5 MG TAB PO SCH ×2 (09:43→21:31)
[2019-07-07] MEDS: cefTRIAXone/NS 2 GM/100 ML 2 GM/100 ML BAG IV SCH (09:45)
[2019-07-07] MEDS: FAMOTIDINE 20 MG/2 ML INJ IV SCH ×2 (09:49→21:30)
--- NOTE | 2019-07-07 10:23 | Progress Note ---
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 Patient with gross purulence and hence is s/p revision with removal of the partial knee components, insertion of antibiotic cement and complete synovectomy of the R knee joint with I&D on 07/05/[address] Francis. Plan for 6 weeks of directed IV abx. Baseline inflammatory markers ESR and CRP are elevated, will trend while on treatment. CXR and TTE unre markable. 2) DM-2/pre-diabetes 3) HTN Recs: - Vancomycin d/wayne - IV Ceftriaxone 2 gm daily x 6 weeks ending 08/16/2019 - PICC line ordered (blood cultures remain negative at 48 hrs) - CM orders placed for IV abx - ID clinic follow up in 2 weeks with tn - OK for discharge once PICC placed and home IV abx are arranged D/W Dr. Francis. Kristi Powell MD, FACP [facility] ([facility] C: [phone] O: [phone] F: [phone] Subjective Date of service: 07/07/19 Principal diagnosis: Rt Knee pain Interval history: No fever. Feels well. Tolerating abx. No rash. No diarrhea. Hoping to go home. Objective - Exam Narrative Exam: Physical Exam: Constitutional: Alert, cooperative. No acute distress Head, Ears, Nose: Normocephalic, atraumatic. External ears, nose normal Eyes: Conjunctivae/corneas clear. No icterus. No ptosis. Neck: Supple, no meningeal signs Oral: dentition fair, no thrush Cardiovascular: S1, S2 normal. Respiratory: b/l exp rhonchi + GI: Soft, non-tender; bowel sounds normal. No peritoneal signs Musculoskeletal: No pedal edema, no cyanosis. R knee surgical dressing + mild warmth and tenderness Skin: No rash or abscess Hem/Lymphatic: No palpable cervical or supraclavicular nodes. No lymphangitis Psych: Mood ok. Affect normal Neurological: Awake, alert, oriented. No gross abnormality - Constitutional Vitals: Vital Signs Temp Pulse Resp BP Pulse Ox 98.0 F 69 18 131/70 97 07/07/19 07:40 07/07/19 07:40 07/07/19 07:40 07/07/19 07:40 07/07/19 07:40 Temperature -Last 24 Hours Temperature 98.0 F Temperature 97.8 F Temperature 98.0 F Temperature 98.1 F Temperature 97.8 F - Labs CBC & Chem 7: 07/06/19 05:57 07/06/19 05:57
[2019-07-07] MEDS: LISINOPRIL 10 MG TAB PO SCH (12:15)
--- NOTE | 2019-07-07 15:18 | Progress Note ---
Subjective Date of service: 07/07/19 Principal diagnosis: Rt Knee pain Interval history: patient doing well. Did PT Dressing dry NVI sensations in LE and Ankle and foot intact Tingling improved. 5/5 motot ankle and foot and ehl A/P continue Knee brace DVT aBX TTWB Objective Vital signs: Vital Signs - 12hr 07/07/19 07/07/19 07/07/19 04:24 07:40 13:11 Temperature 97.8 F 98.0 F 98.0 F Pulse Rate 58 L 69 74 Respiratory 20 18 18 Rate Blood Pressure 117/64 131/70 120/71 O2 Sat by Pulse 95 97 96 Oximetry - Labs CBC & BMP: 07/06/19 05:57 07/06/19 05:57 Labs: Abnormal lab results 07/07/19 Range/Units 11:01 C-Reactive Protein 18.60 H (0.00-1.30) mg/dL
--- NOTE | 2019-07-07 15:47 | Progress Note ---
Assessment and Plan Assessment and plan: (1) Septic arthritis Current Visit: Yes Status: Acute R knee PJI: late, likely from hematogenous seeding, especially given growth of Strep pneumoniae. Patient with gross purulence and hence is s/p revision with removal of the partial knee components, insertion of antibiotic cement and complete synovectomy of the R knee joint with I&D on 07/05/[address] Francis. Plan for 6 weeks of directed IV abx. Get baseline inflammatory markers ESR and CRP. Also check CXR and TTE. - IV Ceftriaxone 2 gm daily started - continue IV Vancomycin for now, till resistant Strep pneumoniae is ruled out - PICC line tomorrow (if blood cultures remain negative at 48 hrs) - Unasyn d/wayne - CXR and TTE, ESR, CRP ordered (2) SIRS (systemic inflammatory response syndrome) Current Visit: Yes Status: Acute Plan to address problem: R knee PJI: late, likely from hematogenous seeding, especially given growth of Strep pneumoniae. Patient with gross purulence and hence is s/p revision with removal of the partial knee components, insertion of antibiotic cement and complete synovectomy of the R knee joint with I&D on 07/05/[address] Francis. Plan for 6 weeks of directed IV abx. Get baseline inflammatory markers ESR and CRP. Also check CXR and TTE. - IV Ceftriaxone 2 gm daily started - continue IV Vancomycin for now, till resistant Strep pneumoniae is ruled out - PICC line tomorrow (if blood cultures remain negative at 48 hrs) - Unasyn d/wayne - CXR and TTE, ESR, CRP ordered (3) History of arthroplasty of right knee Onset Date: 12/05/15 Current Visit: No Status: Chronic Plan to address problem: For surgery Removal of previous hardware (4) Effusion of right knee Current Visit: No Status: Acute Plan to address problem: Rt knee fluid [id number] wbc,s IV Unasyn and vancomycin initiated (5) T2DM (type 2 diabetes mellitus) Current Visit: Yes Status: Chronic Qualifiers: Diabetes mellitus penitentiary insulin use: unspecified penitentiary insulin use status Plan to address problem: COnt achs BG levels and and insulin coverage. (6) HTN (hypertension) Current Visit: Yes Status: Chronic Qualifiers: Hypertension type: essential hypertension Qualified Code(s): I10 - Essential (primary) hypertension Plan to address problem: Cont antihypertensives (7) DVT prophylaxis Current Visit: Yes Status: Acute Plan to address problem: On SCD.s and GI prophlaxod History Interval history: Patient seen and examined medical records reviewed Patient continues to have pain in the elbow joint With septic arthritis on IV antibiotics Alert awake oriented In mild distress Vital signs noted Hospitalist Physical - Constitutional Vitals: Temp Pulse Resp BP Pulse Ox 98.0 F 74 18 120/71 96 07/07/19 13:11 07/07/19 13:11 07/07/19 13:11 07/07/19 13:11 07/07/19 13:11 General appearance: Present: no acute distress, well-nourished - EENT Eyes: Present: PERRL, EOM intact - Neck Neck: Present: supple, normal ROM - Respiratory Respiratory effort: normal Respiratory: bilateral: diminished, negative: rales, rhonchi, wheezing - Cardiovascular Rhythm: regular Heart Sounds: Present: S1 & S2 - Extremities Extremities: no ischemia, No edema, abnormal (Swelling elbow) - Abdominal General gastrointestinal: soft, non-tender, non-distended, normal bowel sounds - Integumentary Integumentary: Present: clear, warm - Psychiatric Psychiatric: appropriate mood/affect, cooperative - Neurologic Neurologic: CNII-XII intact, moves all extremities Results - Labs CBC & Chem 7: 07/06/19 05:57 07/06/19 05:57 Labs: Laboratory Last Values WBC 11.9 K/mm3 (4.5-11.0) H 07/06/19 05:57 RBC 3.79 M/mm3 (3.65-5.03) 07/06/19 05:57 Hgb 12.1 gm/dl (11.8-15.2) 07/06/19 05:57 Hct 35.9 % (35.5-45.6) 07/06/19 05:57 MCV 95 fl (84-94) H 07/06/19 05:57 MCH 32 pg (28-32) 07/06/19 05:57 MCHC 34 % (32-34) 07/06/19 05:57 RDW 14.5 % (13.2-15.2) 07/06/19 05:57 Plt Count 173 K/mm3 (140-440) 07/06/19 05:57 Lymph % (Auto) 4.0 % (13.4-35.0) L 07/06/19 05:57 Frontier % (Auto) 8.5 % (0.0-7.3) H 07/06/19 05:57 Eos % (Auto) 0.0 % (0.0-4.3) 07/06/19 05:57 Baso % (Auto) 0.5 % (0.0-1.8) 07/06/19 05:57 Lymph # 0.5 K/mm3 (1.2-5.4) L 07/06/19 05:57 Frontier # 1.0 K/mm3 (0.0-0.8) H 07/06/19 05:57 Eos # 0.0 K/mm3 (0.0-0.4) 07/06/19 05:57 Baso # 0.1 K/mm3 (0.0-0.1) 07/06/19 05:57 Seg Neutrophils % 87.0 % (40.0-70.0) H 07/06/19 05:57 Seg Neutrophils # 10.4 K/mm3 (1.8-7.7) H 07/06/19 05:57 ESR 67 mm/Hr (0-20) 07/07/19 11:01 Sodium 137 mmol/L (137-145) 07/06/19 05:57 Potassium 4.2 mmol/L (3.6-5.0) 07/06/19 05:57 Chloride 100.1 mmol/L (98-107) 07/06/19 05:57 Carbon Dioxide 24 mmol/L (22-30) 07/06/19 05:57 Anion Gap 17 mmol/L 07/06/19 05:57 BUN 13 mg/dL (9-20) 07/06/19 05:57 Creatinine 0.9 mg/dL (0.8-1.5) 07/06/19 05:57 Estimated GFR > 60 ml/min 07/06/19 05:57 BUN/Creatinine Ratio 14 % 07/06/19 05:57 Glucose 195 mg/dL (75-100) H 07/06/19 05:57 POC Glucose 126 (70-105) H 07/05/19 11:00 Calcium 8.5 mg/dL (8.4-10.2) 07/06/19 05:57 Total Bilirubin 0.40 mg/dL (0.1-1.2) 07/06/19 05:57 AST 24 units/L (5-40) 07/06/19 05:57 ALT 27 units/L (7-56) 07/06/19 05:57 Alkaline Phosphatase 71 units/L (35-129) 07/06/19 05:57 C-Reactive Protein 18.60 mg/dL (0.00-1.30) H 07/07/19 11:01 Total Protein 6.8 g/dL (6.3-8.2) 07/06/19 05:57 Albumin 3.3 g/dL (3.9-5) L 07/06/19 05:57 Albumin/Globulin Ratio 0.9 % 07/06/19 05:57 Urine Color Yellow (Yellow) 07/04/19 Unknown Urine Turbidity Clear (Clear) 07/04/19 Unknown Urine pH 6.0 (5.0-7.0) 07/04/19 Unknown Ur Specific [place] 1.011 (1.003-1.030) 07/04/19 Unknown Urine Protein <15 mg/dl mg/dL (Negative) 07/04/19 Unknown Urine Glucose (UA) Neg mg/dL (Negative) 07/04/19 Unknown Urine Ketones Neg mg/dL (Negative) 07/04/19 Unknown Urine Blood Lg (Negative) 07/04/19 Unknown Urine Nitrite Neg (Negative) 07/04/19 Unknown Urine Bilirubin Neg (Negative) 07/04/19 Unknown Urine Urobilinogen < 2.0 mg/dL (<2.0) 07/04/19 Unknown Ur Leukocyte Esterase Neg (Negative) 07/04/19 Unknown Urine WBC (Auto) 3.0 /HPF (0.0-6.0) 07/04/19 Unknown Urine RBC (Auto) 16.0 /HPF (0.0-6.0) 07/04/19 Unknown Fluid Type Synovial 07/05/19 16:00 Fluid Color Red 07/05/19 16:00 Fluid Appearance Cloudy 07/05/19 16:00 Fluid WBC 34739 /mm3 07/05/19 16:00 Fluid RBC 96356 /mm3 07/05/19 16:00 Fluid Seg Neutrophils 69.0 % 07/05/19 16:00 Fluid Lymphocytes 26.0 % 07/05/19 16:00 Fluid Reactive Lymphs 0 % 07/05/19 16:00 Fluid Monocytes 5.0 % 07/05/19 16:00 Fluid Eosinophils 0 % 07/05/19 16:00 Fluid Basophils 0 % 07/05/19 16:00 Synovial Crystals Negative (NONE SEEN) 07/04/19 19:00 Vancomycin Trough 11.4 ug/mL (5.0-20.0) 07/07/19 11:01 AFB Identification 07/06/19 Unknown Fungal Id Prelim 07/06/19 Unknown Active Medications - Current Medications Current Medications: Generic Name Dose Route Start Last Admin Trade Name Freq PRN Reason Stop Dose Admin Acetaminophen 650 mg 07/04/19 18:07 Tylenol PO Q4H PRN Pain MILD(1-3)/Fever >100.5/IDAZ Apixaban 2.5 mg 07/05/19 22:00 07/07/19 09:43 Eliquis PO 2.5 mg Q12HR SIERRA Administration Protocol Celecoxib 200 mg 07/04/19 22:00 07/07/19 09:41 Celebrex PO 200 mg BID SIERRA Administration Famotidine 20 mg 07/04/19 22:00 07/07/19 09:49 Pepcid IV 20 mg BID SIERRA Administration Hydrochlorothiazide 25 mg 07/04/19 21:00 07/07/19 09:41 Hctz PO 25 mg QDAY SIERRA Administration Hydromorphone HCl 1 mg 07/04/19 18:07 07/07/19 14:13 Dilaudid IV 1 mg Q3H PRN Administration Pain , Severe (7-10) Sodium Chloride 1,000 mls @ 75 mls/hr 07/04/19 19:00 07/04/19 21:21 Nacl 0.9% 1000 Ml IV 75 mls/hr DIRECT SIERRA Administration Lactated Ringer's 1,000 mls @ 125 mls/hr 07/05/19 11:00 07/07/19 06:11 Lactated Ringers IV 125 mls/hr DIRECT SIERRA Administration Ceftriaxone Sodium 2 gm in 100 mls @ 200 mls/hr 07/06/19 12:00 07/07/19 09:45 Rocephin/Ns 2 Gm/100 Ml IV 100 mls/hr Q24HR SIERRA Administration Protocol Lisinopril 10 mg 07/04/19 21:00 07/07/19 12:15 Zestril PO Not Given QDAY SIERRA Ondansetron HCl 4 mg 07/04/19 18:07 07/06/19 19:58 Zofran IV 4 mg Q8H PRN Administration Nausea And Vomiting Oxycodone/Acetaminophen 1 tab 07/04/19 18:07 07/06/19 22:09 Percocet 5/325 PO 1 tab Q6H PRN Administration Pain, Moderate (4-6) Sodium Chloride 10 ml 07/04/19 22:00 07/07/19 14:18 Sodium Chloride Flush Syringe 10 Ml IV 10 ml BID SIERRA Administration Sodium Chloride 10 ml 07/04/19 22:00 07/06/19 22:11 Sodium Chloride Flush Syringe 10 Ml IV 10 ml BID SIERRA Administration Tramadol HCl 50 mg 07/04/19 18:06 Ultram PO Q6HR PRN Pain, Moderate (4-6)
[2019-07-08] MEDS: oxyCODONE /ACETAMINOPHEN 5-325MG TAB PO PRN (08:55)
[2019-07-08] MEDS: CELECOXIB 200 MG CAP PO SCH (08:59)
[2019-07-08] MEDS: FAMOTIDINE 20 MG/2 ML INJ IV SCH (08:59)
[2019-07-08] MEDS: hydroCHLOROthiazide 25 MG TAB PO SCH (08:59)
[2019-07-08] MEDS: cefTRIAXone/NS 2 GM/100 ML 2 GM/100 ML BAG IV SCH (09:00)
[2019-07-08] MEDS: LISINOPRIL 10 MG TAB PO SCH (09:00)
[2019-07-08] MEDS: APIXABAN 2.5 MG TAB PO SCH (09:00)
--- NOTE | 2019-07-08 09:59 | Progress Note ---
Assessment and Plan Assessment and plan: (1) Septic arthritis Current Visit: Yes Status: Acute R knee PJI: late, likely from hematogenous seeding, especially given growth of Strep pneumoniae. Patient with gross purulence and hence is s/p revision with removal of the partial knee components, insertion of antibiotic cement and complete synovectomy of the R knee joint with I&D on 07/05/[address] Francis. Plan for 6 weeks of directed IV abx. Get baseline inflammatory markers ESR and CRP. Also check CXR and TTE. - IV Ceftriaxone 2 gm daily started - continue IV Vancomycin for now, till resistant Strep pneumoniae is ruled out - PICC line tomorrow (if blood cultures remain negative at 48 hrs) - Unasyn d/wayne - CXR and TTE, ESR, CRP ordered (2) SIRS (systemic inflammatory response syndrome) Current Visit: Yes Status: Acute Plan to address problem: R knee PJI: late, likely from hematogenous seeding, especially given growth of Strep pneumoniae. Patient with gross purulence and hence is s/p revision with removal of the partial knee components, insertion of antibiotic cement and complete synovectomy of the R knee joint with I&D on 07/05/[address] Francis. Plan for 6 weeks of directed IV abx. Get baseline inflammatory markers ESR and CRP. Also check CXR and TTE. - IV Ceftriaxone 2 gm daily started - continue IV Vancomycin for now, till resistant Strep pneumoniae is ruled out - PICC line tomorrow (if blood cultures remain negative at 48 hrs) - Unasyn d/wayne - CXR and TTE, ESR, CRP ordered (3) History of arthroplasty of right knee Onset Date: 12/05/15 Current Visit: No Status: Chronic Plan to address problem: For surgery Removal of previous hardware (4) Effusion of right knee Current Visit: No Status: Acute Plan to address problem: Rt knee fluid ,000 wbc,s IV Unasyn and vancomycin initiated (5) T2DM (type 2 diabetes mellitus) Current Visit: Yes Status: Chronic Qualifiers: Diabetes mellitus jail insulin use: unspecified jail insulin use status Plan to address problem: COnt achs BG levels and and insulin coverage. (6) HTN (hypertension) Current Visit: Yes Status: Chronic Qualifiers: Hypertension type: essential hypertension Qualified Code(s): I10 - Essential (primary) hypertension Plan to address problem: Cont antihypertensives (7) DVT prophylaxis Current Visit: Yes Status: Acute Plan to address problem: On SCD.s and GI prophlaxod Hospitalist Physical - Constitutional Vitals: Temp Pulse Resp BP Pulse Ox 98.0 F 80 16 138/78 97 07/08/19 07:20 07/08/19 07:20 07/08/19 08:55 07/08/19 07:20 07/08/19 07:20 General appearance: Present: no acute distress, well-nourished Results - Labs CBC & Chem 7: 07/06/19 05:57 07/06/19 05:57 Labs: Laboratory Last Values WBC 11.9 K/mm3 (4.5-11.0) H 07/06/19 05:57 RBC 3.79 M/mm3 (3.65-5.03) 07/06/19 05:57 Hgb 12.1 gm/dl (11.8-15.2) 07/06/19 05:57 Hct 35.9 % (35.5-45.6) 07/06/19 05:57 MCV 95 fl (84-94) H 07/06/19 05:57 MCH 32 pg (28-32) 07/06/19 05:57 MCHC 34 % (32-34) 07/06/19 05:57 RDW 14.5 % (13.2-15.2) 07/06/19 05:57 Plt Count 173 K/mm3 (140-440) 07/06/19 05:57 Lymph % (Auto) 4.0 % (13.4-35.0) L 07/06/19 05:57 [place] % (Auto) 8.5 % (0.0-7.3) H 07/06/19 05:57 Eos % (Auto) 0.0 % (0.0-4.3) 07/06/19 05:57 Baso % (Auto) 0.5 % (0.0-1.8) 07/06/19 05:57 Lymph # 0.5 K/mm3 (1.2-5.4) L 07/06/19 05:57 Glenn # 1.0 K/mm3 (0.0-0.8) H 07/06/19 05:57 Eos # 0.0 K/mm3 (0.0-0.4) 07/06/19 05:57 Baso # 0.1 K/mm3 (0.0-0.1) 07/06/19 05:57 Seg Neutrophils % 87.0 % (40.0-70.0) H 07/06/19 05:57 Seg Neutrophils # 10.4 K/mm3 (1.8-7.7) H 07/06/19 05:57 ESR 67 mm/Hr (0-20) 07/07/19 11:01 Sodium 137 mmol/L (137-145) 07/06/19 05:57 Potassium 4.2 mmol/L (3.6-5.0) 07/06/19 05:57 Chloride 100.1 mmol/L (98-107) 07/06/19 05:57 Carbon Dioxide 24 mmol/L (22-30) 07/06/19 05:57 Anion Gap 17 mmol/L 07/06/19 05:57 BUN 13 mg/dL (9-20) 07/06/19 05:57 Creatinine 0.9 mg/dL (0.8-1.5) 07/06/19 05:57 Estimated GFR > 60 ml/min 07/06/19 05:57 BUN/Creatinine Ratio 14 % 07/06/19 05:57 Glucose 195 mg/dL (75-100) H 07/06/19 05:57 POC Glucose 126 (70-105) H 07/05/19 11:00 Calcium 8.5 mg/dL (8.4-10.2) 07/06/19 05:57 Total Bilirubin 0.40 mg/dL (0.1-1.2) 07/06/19 05:57 AST 24 units/L (5-40) 07/06/19 05:57 ALT 27 units/L (7-56) 07/06/19 05:57 Alkaline Phosphatase 71 units/L (35-129) 07/06/19 05:57 C-Reactive Protein 18.60 mg/dL (0.00-1.30) H 07/07/19 11:01 Total Protein 6.8 g/dL (6.3-8.2) 07/06/19 05:57 Albumin 3.3 g/dL (3.9-5) L 07/06/19 05:57 Albumin/Globulin Ratio 0.9 % 07/06/19 05:57 Urine Color Yellow (Yellow) 07/04/19 Unknown Urine Turbidity Clear (Clear) 07/04/19 Unknown Urine pH 6.0 (5.0-7.0) 07/04/19 Unknown Ur Specific [place] 1.011 (1.003-1.030) 07/04/19 Unknown Urine Protein <15 mg/dl mg/dL (Negative) 07/04/19 Unknown Urine Glucose (UA) Neg mg/dL (Negative) 07/04/19 Unknown Urine Ketones Neg mg/dL (Negative) 07/04/19 Unknown Urine Blood Lg (Negative) 07/04/19 Unknown Urine Nitrite Neg (Negative) 07/04/19 Unknown Urine Bilirubin Neg (Negative) 07/04/19 Unknown Urine Urobilinogen < 2.0 mg/dL (<2.0) 07/04/19 Unknown Ur Leukocyte Esterase Neg (Negative) 07/04/19 Unknown Urine WBC (Auto) 3.0 /HPF (0.0-6.0) 07/04/19 Unknown Urine RBC (Auto) 16.0 /HPF (0.0-6.0) 07/04/19 Unknown Fluid Type Synovial 07/05/19 16:00 Fluid Color Red 07/05/19 16:00 Fluid Appearance Cloudy 07/05/19 16:00 Fluid WBC 89654 /mm3 07/05/19 16:00 Fluid RBC 41190 /mm3 07/05/19 16:00 Fluid Seg Neutrophils 69.0 % 07/05/19 16:00 Fluid Lymphocytes 26.0 % 07/05/19 16:00 Fluid Reactive Lymphs 0 % 07/05/19 16:00 Fluid Monocytes 5.0 % 07/05/19 16:00 Fluid Eosinophils 0 % 07/05/19 16:00 Fluid Basophils 0 % 07/05/19 16:00 Synovial Crystals Negative (NONE SEEN) 07/04/19 19:00 Vancomycin Trough 11.4 ug/mL (5.0-20.0) 07/07/19 11:01 AFB Identification 07/06/19 Unknown Fungal Id Prelim 07/06/19 Unknown Active Medications - Current Medications Current Medications: Generic Name Dose Route Start Last Admin Trade Name Freq PRN Reason Stop Dose Admin Acetaminophen 650 mg 07/04/19 18:07 Tylenol PO Q4H PRN Pain MILD(1-3)/Fever >100.5/DIAZ Apixaban 2.5 mg 07/05/19 22:00 07/08/19 09:00 Eliquis PO 2.5 mg Q12HR SIERRA Administration Protocol Celecoxib 200 mg 07/04/19 22:00 07/08/19 08:59 Celebrex PO 200 mg BID SIERRA Administration Famotidine 20 mg 07/04/19 22:00 07/08/19 08:59 Pepcid IV 20 mg BID SIERRA Administration Hydrochlorothiazide 25 mg 07/04/19 21:00 07/08/19 08:59 Hctz PO 25 mg QDAY SIERRA Administration Hydromorphone HCl 1 mg 07/04/19 18:07 07/07/19 14:13 Dilaudid IV 1 mg Q3H PRN Administration Pain , Severe (7-10) Sodium Chloride 1,000 mls @ 75 mls/hr 07/04/19 19:00 07/04/19 21:21 Nacl 0.9% 1000 Ml IV 75 mls/hr DIRECT SIERRA Administration Lactated Ringer's 1,000 mls @ 125 mls/hr 07/05/19 11:00 07/07/19 16:33 Lactated Ringers IV 125 mls/hr DIRECT SIERRA Administration Ceftriaxone Sodium 2 gm in 100 mls @ 200 mls/hr 07/06/19 12:00 07/08/19 09:00 Rocephin/Ns 2 Gm/100 Ml IV 100 mls/hr Q24HR SIERRA Administration Protocol Lisinopril 10 mg 07/04/19 21:00 07/08/19 09:00 Zestril PO Not Given QDAY SIERRA Ondansetron HCl 4 mg 07/04/19 18:07 07/06/19 19:58 Zofran IV 4 mg Q8H PRN Administration Nausea And Vomiting Oxycodone/Acetaminophen 1 tab 07/04/19 18:07 07/08/19 08:55 Percocet 5/325 PO 1 tab Q6H PRN Administration Pain, Moderate (4-6) Sodium Chloride 10 ml 07/04/19 22:00 07/08/19 09:00 Sodium Chloride Flush Syringe 10 Ml IV 10 ml BID SIERRA Administration Sodium Chloride 10 ml 07/04/19 22:00 07/08/19 09:08 Sodium Chloride Flush Syringe 10 Ml IV Not Given BID SIERRA Tramadol HCl 50 mg 07/04/19 18:06 Ultram PO Q6HR PRN Pain, Moderate (4-6)
[2019-07-08 12:58] VITALS: BP 128/80
--- NOTE | 2019-07-08 13:56 | Discharge Summary ---
Providers - Providers Date of Admission: 07/04/19 17:25 Date of discharge: 07/08/19 Attending physician: LYRIC FISCHER 07/04/19 17:24 Consult to Physician [CONS] Stat Comment: Consulting Provider: ROCÍO CALZADA Physician Instructions: Reason For Exam: INFECTED RT. KNEE JOINT ,PLAN SURGERY ON 07/05/19 07/04/19 17:49 Consult to Physician [CONS] Routine Comment: Consulting Provider: KATTY DAMIAN Physician Instructions: Reason For Exam: INFECTED RT. KNEE JOINT 07/04/19 18:02 Consult to Physician [CONS] Routine Comment: Consulting Provider: PARDEEP COY Physician Instructions: Reason For Exam: MEDICAL CLEARANCE FOR SURGERY 07/05/19 15:49 Physical Therapy Evaluation and Treat [CONS] Routine Comment: knee immobilizer at all times Reason For Exam: postop revision knee Mode of Transport?: Crutches Weight bearing status?: Toe touch Assistive devices?: Yes 07/07/19 10:20 Consult to PICC Line RN [CONS] Urgent Reason For Exam: PICC line for home IV abx Type Line:: PICC 07/07/19 11:02 Consult to Case Management [CONS] Urgent Services Needed at Discharge: Other Notified:: No Additional Physician Instructions: [facility] ([facility] O: [phone] F: [phone] OUTPATIENT PARENTERAL ANTIBIOTIC THERAPY (OPAT) ORDERS Diagnoses: Right knee prosthetic joint infection Antimicrobial administration: IV Ceftriaxone 2 gm daily x 6 weeks ending 08/16/2019. - Remove PICC line after last dose unless otherwise instructed. Lines: Maintain IV access with weekly dressing changes and locks per protocol. Lab monitoring: - CBC with differential, Creatinine, ALT, AST, ESR, CRP once a week every Wednesday while on IV antibiotics. Please fax results to [phone] and call [phone] for critical lab results. Kristi Powell MD, FACP [facility] Primary care physician: INVENTORY SPECIALIST MANAGER Hospitalization Reason for admission: Rt knee swelling and rt leg swelling 1 week/septic arthritis Condition: Good Pertinent studies: Lower extremity venous Doppler X-ray knee X-ray chest Echocardiogram Procedures: Right knee orthopedic procedure s/p revision with removal of the partial knee components, insertion of antibiotic cement and complete synovectomy of the R knee joint with I&D on 07/05/[address] Damian. Hospital course: Patient was admitted with rt knee swelling and rt leg swelling 1 week.Rt Knee aspiration done by Dr Harris which was sent for analysis.Revealed [id number] white cells. patient being admitted directly for management of septic arthritis.evaluated by orthopedic surgeon underwent s/p revision with removal of the partial knee components, insertion of antibiotic cement and complete synovectomy of the R knee joint with I&D on 07/05/[address] Damian. ID evaluated the patient and optimized antibiotic therapy Recommended 6 weeks of IV antibiotics, patient received PICC line, home health was set up by case management Today patient feels comfortable cleared by orthopedic and ID for discharge and follow-up both with Ortho ID as well as primary care physician Patient is hemodynamically and clinically stable at discharge Discharge diagnosis: -- Septic arthritis/infected septic right knee Current Visit: Yes Status: Acute R knee PJI: late, likely from hematogenous seeding, especially given growth of Strep pneumoniae. Patient with gross purulence and hence is s/p revision with removal of the partial knee components, insertion of antibiotic cement and complete synovectomy of the R knee joint with I&D on 07/05/[address] Damian. Plan for 6 weeks of directed IV abx. Get baseline inflammatory markers ESR and CRP. Also check CXR and TTE. Received IV antibiotics and supportive care Received PICC line for 6 weeks of IV antibiotics recommended by ID -- SIRS (systemic inflammatory response syndrome)/sepsis Current Visit: Yes Status: Acute Plan for 6 weeks of directed IV abx. ID and Ortho following PICC line placed --History of arthroplasty of right knee Onset Date: 12/05/15 Current Visit: No Status: Chronic For surgery,Removal of previous hardware -- Effusion of right knee Current Visit: No Status: Acute Rt knee fluid [id number] wbc,s IV Unasyn and vancomycin initiated ID optimized antibiotics --T2DM (type 2 diabetes mellitus) Current Visit: Yes Status: Chronic COnt achs BG levels and and insulin coverage. --HTN (hypertension) Current Visit: Yes Status: Chronic Cont antihypertensives -- DVT prophylaxis Current Visit: Yes Status: Acute On SCD.s GI prophylaxis Protonix Stable at discharge Disposition: [id number] HOME UNDER HOME HLTH Time spent for discharge: 32 min Core Measure Documentation - Palliative Care Palliative Care/ Comfort Measures: Not Applicable - Core Measures Any of the following diagnoses?: none Exam - Constitutional Vitals: Temp Pulse Resp BP Pulse Ox 97.6 F 93 H 18 128/80 96 07/08/19 11:00 07/08/19 11:00 07/08/19 11:00 07/08/19 11:00 07/08/19 11:00 General appearance: Present: no acute distress, well-nourished, obese - EENT Eyes: Present: PERRL, EOM intact - Neck Neck: Present: supple, normal ROM - Respiratory Respiratory effort: normal Respiratory: negative: diminished, rales, rhonchi, wheezing - Cardiovascular Rhythm: regular Heart Sounds: Present: S1 & S2 - Extremities Extremities: no ischemia, No edema, abnormal (postop changes) Extremity abnormal: other (Right knee arthritis) - Abdominal General gastrointestinal: Present: soft, non-tender, non-distended, normal bowel sounds - Integumentary Integumentary: Present: clear, warm - Musculoskeletal Musculoskeletal: strength equal bilaterally - Psychiatric Psychiatric: appropriate mood/affect, cooperative - Neurologic Neurologic: CNII-XII intact, moves all extremities Plan Activity: advance as tolerated, fall precautions Diet: other (cardiac diet) Additional Instructions: Ambulate as tolerated, Fall Precautions. Eliquis 2.5 mg x twice a day Starting from 07/08/2019 evening dose till 07/19/2019 evening dose. ASA 325 mg twice a day starting from 07/20/2019 for 3 weeks. Recommended by orthopedic surgeon Dr Harris. Advised to resume tramadol as needed only after completing Percocet tablets. IV Ceftriaxone 2 gm daily x 6 weeks ending 08/16/2019 [Rec by ID ] Follow up with: PRIMARY MD SIM [Primary Care Provider] - 7 Days KATTY DAMIAN MD [Staff Physician] - 7 Days Prescriptions: Aspirin EC 325 mg PO QDAY 21 Days #42 tablet. Apixaban [Eliquis] 2.5 mg PO Q12HR #23 tablet oxyCODONE /ACETAMINOPHEN [Percocet 5/325 mg] 1 tab PO Q6H PRN #20 tablet PRN Reason: Pain, Moderate (4-6)
== END 2019-07-08 15:50 | disposition home health service (06) | DRG 467 ==
LOC: 3A 17:20 → UNDOADMIN 17:20 → 3B-SURG 17:25
PROVIDERS: ADMIT Internal Medicine; ATTEND Internal Medicine
PROC: 0S9C0ZZ Drainage of Right Knee Joint, Open Approach (ICD-10-PCS; principal; 2019-07-06)
PROC: 0SBC0ZZ Excision of Right Knee Joint, Open Approach (ICD-10-PCS; 2019-07-06)
PROC: 0SPC0JZ Removal of Synthetic Substitute from Right Knee Joint, Open Approach (ICD-10-PCS; 2019-07-06)
PROC: 0SRC0EZ Replacement of Right Knee Joint with Articulating Spacer, Open Approach (ICD-10-PCS; 2019-07-06)
PROC: 05HY33Z Insertion of Infusion Device into Upper Vein, Percutaneous Approach (ICD-10-PCS; 2019-07-07)
DX: T84.53XA Infection and inflammatory reaction due to internal right knee prosthesis, initial encounter (principal); M00.161 Pneumococcal arthritis, right knee; R65.10 Systemic inflammatory response syndrome (SIRS) of non-infectious origin without acute organ dysfunction; M25.461 Effusion, right knee; G47.30 Sleep apnea, unspecified; E11.9 Type 2 diabetes mellitus without complications; Z96.651 Presence of right artificial knee joint; I10 Essential (primary) hypertension; Z72.89 Other problems related to lifestyle; Z82.49 Family history of ischemic heart disease and other diseases of the circulatory system; Z79.899 Other long term (current) drug therapy
CPT/HCPCS: 36415; 71046; 80053; 80202; 81001; 82962; 85025; 85048; 85652; 86140; 87040; 87075; 87076; 87102; 87116; 87186; 88112; 88300; 88302; 88305; 88312; 89051; 93306; G0378; C1713; J0295; J0696; J1100; J1170; J2250; J2270; J2405; J2704; J3010; J3260; J3370; J7030; J7040; J7120